=== PATIENT | male | born 2000 | race Caucasian/White ===

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

== ENCOUNTER → 2021-03-03 | Outpatient (CLI) | payer OTHER | LOC: RAD 09:43 | DX: M41.9 Scoliosis, unspecified (principal) | CPT/HCPCS: 72082 ==